=== PATIENT | male | born 1990 | race African-American/Black ===

== ENCOUNTER 2025-02-25 12:31 | Outpatient (CLI) | payer OTHER, SELFPAY ==
--- NOTE | ~2025-02-25 | CT_ITS ---
EXAMINATION: CT hand RT wo con DATE: 02/25/2025 12:51 INDICATION: Right hand injury with pain to the first and second digits. TECHNIQUE: High resolution computed tomography (CT) of the right hand and wrist was performed without intravenous contrast. Additional sagittal and coronal reconstructions were performed. Automated expo sure control and iterative reconstruction technique were employed. The dose-length product was 108.22 mGy-cm. COMPARISON: None FINDINGS: Minimally displaced comminuted fractures at the proximal pole of the scaphoid. No other fractures allison ntified. 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 Mild soft tissue sw elling at the volar/radial aspect of the wrist. IMPRESSION: 1. Minimally displaced comminuted fracture at the proximal pole of the scaphoid. Reviewed, dictated and finalized at location A. IMPRESSION: 1. Minimally displaced comminuted fracture at the proximal pole of the scaphoid .
== END 2025-02-25 12:32 | disposition home or self-care (01) ==
DX: S63.591A Other specified sprain of right wrist, initial encounter (principal); X58.XXXA Exposure to other specified factors, initial encounter
CPT/HCPCS: 73200